=== PATIENT | female | born 1980 | race Caucasian/White ===

== ENCOUNTER 2024-11-06 08:32 | Outpatient (CLI) | payer OTHER, SELFPAY ==
--- OUTSIDE RECORDS SUMMARY | 2024-11-06 08:53 | XMS_ITS | Encounter Summary ---
Author Organization [facility] Healthcare Address [address] [place] [address] Care Team Providers Care Hse Specialist Name Role Phone Ana lAmaraz MD Primary Care Provider + Betty Albarran NP Primary Care Provider [phone] Encounter Details Date Type Department Care Team (Late st Contact Info) Description 12/13/2022 Telephone [facility] Case Management [id number] [place] [address] Carla Millard, RN Social History Tobacco Use Types Packs/Day Years Used Date Smoking Tobacco: Former Cigarettes Q uit: 2020 Smokeless Tobacco: Never AUDIT-C Answer Date Recorded Q1: How often do you have a drink containing alc ohol? 2-4 times a month 12/09/2022 Q2: How many drinks containi ng alcohol do you have on a typical day when you are drinking? 1 or 2 12/09/2022 Q3: How often do you have si x or more drinks on one occasion? Never 12/09/2022 Personal Safety Answer Date Recorded Have you ever been in or are you currently in a harmful physical or emotional relationship or is someone making you feel afraid or unsafe? 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
--- OUTSIDE RECORDS SUMMARY | 2024-11-06 08:53 | XMS_ITS | Encounter Summary ---
Author Organization 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
--- OUTSIDE RECORDS SUMMARY | 2024-11-06 08:53 | XMS_ITS | Clinical Summary ---
Author Organization [facility] Address [address] [place] [id number] Care Team Providers Care Tectonophysicist Name Role Phone Betty Albarran NP Primary Care Provider [phone] Allergies Active Allergy Reactions Criticality Noted Date Comments Adhesive Rash,Swelling Medium 10/25/2022 Adhesive Tape-Silicones Rash Medium 01/11/2024 Medications iodoquinol-hydro cortisone (DERMAZENE) 1-1 % creamIndications :Eczema Apply topically as needed Active phentermine (ADIPEX-P) 37.5 mg tablet Take 1 tablet (37.5 mg total) by mouth every morning 3 Active traZODone (DESYREL) 100 mg tablet Take 1 tablet (100 mg total) by mouth nightly as needed for sleep 3 Active valACYclovir (VALTREX) 1 gram tablet Take 1 tablet (1,000 mg total) by mouth as needed Active ALPRAZolam (XANAX) 0.5 mg tablet Take 0.5 tablets (0.25 mg total) by mouth 3 (three) times a day as needed for anxiety 3 Active oxyCODONE (ROXICODONE) 5 mg immediate release tabletIndication s:Pain Take 1 tablet (5 mg total) by mouth every 4 (four) hours as needed for pain for up to 30 doses 30 tablet 08/15/202 3 Active traMADoL (ULTRAM) 50 mg tabletIndication s:Postoperative pain Take 1 tablet (50 mg total) by mouth every 8 (eight) hours as needed for pain (1st line) 42 tablet 3 Active cyclobenzaprine (FLEXERIL) 5 mg tabletIndication s:Muscle spasms of both lower extremities Take 1 tablet (5 mg total) by mouth 3 (three) times a day as needed for muscle spasms 30 tablet 3 Active meloxicam (MOBIC) 15 mg tablet TAKE 1 TABLET(15 MG) BY MOUTH DAILY 30 tablet 3 Active amoxicillin 500 mg tablet/capsuleIn dications:Prophy lactic antibiotic TAKE 4 PILL 1 HOUR BEFORE DENTAL APPOINTMENT. 4 tablet/capsu le 5 3 Active cefdinir (OMNICEF) 300 mg capsule Take 1 capsule every 12 hours by oral route for 10 days. Active doxycycline hyclate 100 mg capsule TAKE 1 CAPSULE BY MOUTH TWICE DAILY FOR 10 DAYS 4 Active estradioL (ESTRACE) 0.01 % (0.1 mg/gram) vaginal cream APPLY 1GM TO EXTERNAL TISSUES 2 TIMES A WEEK NEEDED Active methocarbamoL (ROBAXIN) 750 mg tablet TAKE 1 TABLET BY MOUTH THREE TIMES A DAY NEEDED FOR 7 DAYS Active neomycin-polymyx in-dexAMETHasone (MAXITROL) 3.5mg/mL-10,000 unit/mL-0.1 % ophthalmic suspension Active nitrofurantoin monohydrate (Macrobid) 100 mg capsule Take 1 capsule every 12 hours by oral route for 7 days. Active nystatin 100,000 unit/mL suspension 5 ml po TID x 7 days prn thrush (swish, hold in mouth as long as possible, and spit out) Active omeprazole (PriLOSEC) 40 mg capsule TAKE 1 CAPSULE DAILY IN THE MORNING 30 MINUTES BEFORE BREAKFAST Active phentermine-topi ramate (Qsymia) 3.75-23 mg capsule, ER multiphase 24 hr Take 1 capsule(s) EVERY DAY by oral route for 14 days. Active polymyxin B-trimethoprim (POLYTRIM) ophthalmic solution INSTILL 1 DROP INTO AFFECTED EYE(S) BY OPHTHALMIC ROUTE EVERY 6 HOURS Active predniSONE (DELTASONE) 20 mg tablet 4 Active zolpidem (AMBIEN) 5 mg tablet Take 1 tablet every day by oral route for 10 days. 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 Gender Identity Female 10/20/2022 11:59 AM CDT Sexual Orientation Straight 10/20/2022 11 :59 AM CDT Obstetrics History Last Filed Vital Signs Vital Sign Reading Time Taken Comments Blood Pressure 119/73 12/10/2022 12:10 PM CDT Pulse 72 12/10/2022 12:10 PM CDT Temperature 36.6 C (97.8 F) 12/10/2022 12:06 PM CDT Respiratory Rate 16 12/10/2022 12:06 PM CDT Oxygen Saturation 100% 12/10/2022 12:10 PM CDT Inhaled Oxygen Concentration - - Weight 79.6 kg (175 lb 6.4 oz) 12/09/2022 11:41 AM CDT Height 157.5 cm (5' 2 ) 12/09/2022 11:41 AM CDT Body Mass Index 32.08 12/09/2022 11:41 AM CDT Plan of Treatment Health Maintenance Due Date Last Done Comments Breast Cancer Screening-Mammogram 1980 Cervical Cancer Screening 1980 Depression Screening 1980 Hepatitis C Screening 1980 Varicella Vaccines (1 of 2 - 13+ 2-dose series) 1993 Hepatitis B Screening 1998 Regular Well Visit/Exam 18-64 1998 Pneumococcal vaccine <65 (2 of 2 - PPSV23) 08/07/2014 06/12/2014 Covid-19 Vaccine ( season) 2024 04/22/2023, 04/21/2022, 04/16/2021, Additional history exists Influenza Vaccine (#1) 2024 , 04/15/2020, 04/25/2019, Additional history exists DTaP/Tdap/Td Vaccine (2 - Td or Tdap) 06/12/2024 06/12/2014 HPV Vaccines Aged Out No longer eligi ble based on patient's age to complete this topic Medical Devices Implanted Type Area Reactor Fueling Supervisor Device Identifier Shelf Expiration Date Model / Serial / Lot Depuy Orthopaedics Inc Smartset Medium Viscosity Cement 40gm Bone Gentamicin [id number] - [facility] - [id number] Implanted:Qty: 1 on 12/09/2022 by Jc Cavanaugh MD at [facility] Bone Cement Left: Knee Depuy Orthopaedics Inc 02/08/2024 [id number] / NA / [id number] Gonzalez [employer] Nephew/Richco/O rtho Tiana Ii Legion Spc Cruciate Retain Knee Left 5 Component [id number] - [facility] - [id number] Implanted:Qty: 1 on 12/09/2022 by Jc Cavanaugh MD at [facility] Other - see comments Left: Knee [employer]Rich[employer]/ Ortho [id number] 06/19/2032 [id number] / NA / [id number] Description:Implant pause pe rformed prior to implant being opened to sterile field. [employer]/Rich[employer]/O rtho Tibial Baseplate Knee Porous Left Fixed With Journey Lock K 15 Pork Size 4 [id number] - [facility] - [id number] Implanted:Qty: 1 on 12/09/2022 by Jc Cavanaugh MD at [facility] Other - see comments Left: Knee [employer]/ Ortho [id number] 09/16/2031 [id number] / NA / [id number] Description:Implant pause pe rformed prior to implant being opened to sterile field. [employer] Nephew/Richco/O rtho Insert Tibial Knee Fixed With Journey Lock Deep [facility] Legion 9mm Size 3-4 Xlpe [id number] - Sna - [id number] Implanted:Qty: 1 on 12/09/2022 by Jc Cavanaugh MD at [facility] Other - see comments Left: Knee [employer]/ Ortho [id number] 06/14/2031 [id number] / NA / [id number] Description:Implant pause pe rformed prior to implant being opened to sterile field. [place] [employer] [place] [place] For more information, please contact: [phone] * Full Code (Latest Code Status on File) Date Activated Date Inactivated Comments 12/09/2022 4:06 PM 12/10/2022 5:31 PM Care Teams Tectonophysicist Relationship Specialty Start Date End Date Betty Albarran NP [address] [place] [address] PCP - General Nurse Practitioner 01/11/24
--- OUTSIDE RECORDS SUMMARY | 2024-11-06 08:53 | XMS_ITS | Clinical Summary ---
Author Organization [facility] Address [address] [place] [id number] Care Team Providers Care Circuit Clerk Name Role Phone Jerardo Albarran NP Primary Care Provider [phone] Encounters Date Type Department Care Team Description 11/05/2024 12:38 PM CDT Hospital Encounter [facility] [address] [place], [place] [id number] Jerardo Albarran NP Arrived 11/05/2024 Travel 10/08/2024 3:07 PM CDT - 10/08/2024 11:59 PM CDT Hospital Encounter [facility] [address] [place], [place] [id number] Non-Staff, Provider Jerardo Albarran NP Discharge Disposition: Home or Self Care (Routine Discharge) 10/08/2024 Travel from Last 3 Months Family History Medical History Relation Comments Breast Cancer Neg Hx Social History Tobacco Use Types Packs/Day Years Used Date Smoking Tobacco: Never Assessed Comments Unknown Sex and Gender Information Value Date Recorded Sex Assigned at Female 10/02/2024 10:56 AM CDT 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 Gender Identity Female 10/02/2024 10:56 AM CDT Sexual Orientation Not on file Plan of Treatment Health Maintenance Due Date Last Done Comments Cervical Cancer Screening Pap Smear (Age 30 to 64) Every 3 Years 1980 Annual Physical 1983 Hepatitis C 1998 Hepatitis B Vaccines (1 of 3 - 19+ 3-dose series) 1999 Cervical Cancer Screening Pap with HPV Testing (Age 30 to 64) Every 5 Years 2010 Cervical Cancer Screening with HPV 2010 DTaP, Tdap and Td Vaccines (2 - Td or Tdap) 06/12/2024 06/12/2014 Mammogram Screening 11/05/2026 11/05/2024, 5 Pneumococcal Vaccine: Pediatrics (0 to 5 Years) and At-Risk Patients (6 to 49 Years) Aged Out 06/12/2014 No longer eligible based on patient's age to complete this topic COVID-19 Vaccine Completed 04/13/2024, , 04/21/2022, Additional history exists HPV Vaccines Aged Out No longer eligi ble based on patient's age to complete this topic Meningococcal B Vaccine Aged Out No l onger eligible based on patient's age to complete this topic Meningococcal Vaccine Aged Out No ivett jason eligible based on patient's age to complete this topic RSV Immunizations Under 20 Months Aged Out No longer eligible based on patient's age to complete this topic Procedures Procedure Name Priority Date/Time Associated Diagnosis Comments MG DIAG W ISELA BILAT DIGI Routine 11/05/2024 1:49 PM CDT Other abnormal and inconclusive findings on diagnostic imaging of breast US BREAST RT BIRAD LTD Routine 11/05/2024 1:46 PM CDT Other abnormal and inconclusive findings on diagnostic imaging of breast US BREAST LT BIRAD LTD Routine 11/05/2024 1:46 PM CDT Other abnormal and inconclusive findings on diagnostic imaging of breast MG SCREENING W ISELA JOY DIGI Routine 10/08/2024 4:22 PM CDT Screening mammogram for breast cancer from Last 3 Months Results * MG DIAG W ISELA BILAT DIGI (11/05/2024 1:49 PM CDT) Anatomical Region Laterality Modality Breast Bilateral Mammography, Rad iographic Imaging 11/05/2024 1:44 PM CDT Impressions 11/05/2024 1:55 PM CDT ===== IMPRESSION: ===== 1. The breast masses are suggestive of cyst. Six-month follow-up is recommended. 2. Findings reviewed and discussed with the patient in the presence of the energy trader, JOSE ANGEL. Assessment: ACR BI-RADS 3 - PROBABLY BENIGN FINDING(S) - SHORT INTERVAL FOLLOW- UP SUGGESTED Recommendation: 1:Short interval follow-up in 6 months.Bilateral Comments: Ordered By: JERARDO ALBARRAN Interpreted By: Selwyn Flores MD, 11/05/2024 1:44 PM Narrative 11/05/2024 1:55 PM CDT [facility] [address] [place] [address] Examination: Digital bilateral diagnostic mammogram with 3-D tomography of grayscale and color Doppler images of the right and left breast. [id number], [id number] Exam Date/Time: 11/05/2024 12:47 PM Reason For Exam: other Abnormal screening mammogram. Comparison: Priors including September 2024, August 2023. Technique: Digital diagnostic mammography of both breasts was performed in addition to 3-D Tomosynthesis technique. This study was read with the assistance of a computer-aided detection system. Grayscale and color Doppler images the right and left breast. Tissue density: There are scattered areas of fibroglandular density. Findings: The mass in the lateral superior right breast does persist. Subsequent targeted ultrasound is performed. In the right breast at the 10:00 position 5 cm from the nipple there is a round anechoic mass that is present. There is posterior acoustic enhancement that is present. Minimal internal echoes are present. The orellana appear to be fairly well-defined with minimal irregularity. This may relate to resolution of the images. This measures approximately 7 mm in maximal dimension. This is suggestive of minimally complicated cyst. Six-month follow-up is recommended. In the lateral left breast the mass does persist after compression is applied. Subsequent targeted ultrasound is performed. At the 3:00 position 7 cm from nipple there is a hypoechoic area that is present. This suggestive of a simple cyst. This posterior acoustic enhancement that is present. No internal color flow is present. This measures approximately 5 mm in maximal dimension. This suggestive of a small cyst. Six-month follow-up recommended. us Jerardo Albarran PLANT SAFETY LEADER MAMMO Final Result * US BREAST RT [employer] (11/05/2024 1:46 PM CDT) Anatomical Region Laterality Modality Breast Right Ultrasound 11/05/2024 1:44 PM CDT Impressions 11/05/2024 1:55 PM CDT ===== IMPRESSION: ===== 1. The breast masses are suggestive of cyst. Six-month follow-up is recommended. 2. Findings reviewed and discussed with the patient in the presence of the energy trader, JOSE ANGEL. Assessment: ACR BI-RADS 3 - PROBABLY BENIGN FINDING(S) - SHORT INTERVAL FOLLOW- UP SUGGESTED Recommendation: 1:Short interval follow-up in 6 months.Bilateral Comments: Ordered By: JERARDO ALBARRAN Interpreted By: Selwyn Flores MD, 11/05/2024 1:44 PM Narrative 11/05/2024 1:55 [place] [address] Examination: Digital bilateral diagnostic mammogram with 3-D tomography of grayscale and color Doppler images of the right and left breast. [id number], [id number] Exam Date/Time: 11/05/2024 12:47 PM Reason For Exam: other Abnormal screening mammogram. Comparison: Priors including September 2024, August 2023. Technique: Digital diagnostic mammography of both breasts was performed in addition to 3-D Tomosynthesis technique. This study was read with the assistance of a computer-aided detection system. Grayscale and color Doppler images the right and left breast. Tissue density: There are scattered areas of fibroglandular density. Findings: The mass in the lateral superior right breast does persist. Subsequent targeted ultrasound is performed. In the right breast at the 10:00 position 5 cm from the nipple there is a round anechoic mass that is present. There is posterior acoustic enhancement that is present. Minimal internal echoes are present. The orellana appear to be fairly well-defined with minimal irregularity. This may relate to resolution of the images. This measures approximately 7 mm in maximal dimension. This is suggestive of minimally complicated cyst. Six-month follow-up is recommended. In the lateral left breast the mass does persist after compression is applied. Subsequent targeted ultrasound is performed. At the 3:00 position 7 cm from nipple there is a hypoechoic area that is present. This suggestive of a simple cyst. This posterior acoustic enhancement that is present. No internal color flow is present. This measures approximately 5 mm in maximal dimension. This suggestive of a small cyst. Six-month follow-up recommended. us Jerardo Albarran NP ULTRASOUND Final Result * US BREAST LT [employer] [facility] (11/05/2024 1:46 PM CDT) Anatomical Region Laterality Modality Breast Left Ultrasound 11/05/2024 1:44 PM CDT Impressions 11/05/2024 1:55 PM CDT ===== IMPRESSION: ===== 1. The breast masses are suggestive of cyst. Six-month follow-up is recommended. 2. Findings reviewed and discussed with the patient in the presence of the energy trader, JOSE ANGEL. Assessment: ACR BI-RADS 3 - PROBABLY BENIGN FINDING(S) - SHORT INTERVAL FOLLOW- UP SUGGESTED Recommendation: 1:Short interval follow-up in 6 months.Bilateral Comments: Ordered By: JERARDO ALBARRAN Interpreted By: Selwyn Flores MD, 11/05/2024 1:44 PM Narrative 11/05/2024 1:55 PM CDT [facility] [address] [place] [address] Examination: Digital bilateral diagnostic mammogram with 3-D tomography of grayscale and color Doppler images of the right and left breast. [id number], [id number] Exam Date/Time: 11/05/2024 12:47 PM Reason For Exam: other Abnormal screening mammogram. Comparison: Priors including September 2024, August 2023. Technique: Digital diagnostic mammography of both breasts was performed in addition to 3-D Tomosynthesis technique. This study was read with the assistance of a computer-aided detection system. Grayscale and color Doppler images the right and left breast. Tissue density: There are scattered areas of fibroglandular density. Findings: The mass in the lateral superior right breast does persist. Subsequent targeted ultrasound is performed. In the right breast at the 10:00 position 5 cm from the nipple there is a round anechoic mass that is present. There is posterior acoustic enhancement that is present. Minimal internal echoes are present. The orellana appear to be fairly well-defined with minimal irregularity. This may relate to resolution of the images. This measures approximately 7 mm in maximal dimension. This is suggestive of minimally complicated cyst. Six-month follow-up is recommended. In the lateral left breast the mass does persist after compression is applied. Subsequent targeted ultrasound is performed. At the 3:00 position 7 cm from nipple there is a hypoechoic area that is present. This suggestive of a simple cyst. This posterior acoustic enhancement that is present. No internal color flow is present. This measures approximately 5 mm in maximal dimension. This suggestive of a small cyst. Six-month follow-up recommended. us Jerardo Albarran NP ULTRASOUND Final Result * MG SCREENING W ISELA JOY DIGI (10/08/2024 4:22 PM CDT) Anatomical Region Laterality Modality Breast Bilateral Mammography 10/09/2024 1:36 PM CDT Impressions 10/09/2024 1:37 PM CDT =====IMPRESSION:===== Additional imaging evaluation of the right left breast is needed. ASSESSMENT: ACR BI-RADS 0 - INCOMPLETE: NEEDS ADDITIONAL IMAGING EVALUATION Recommendation: 1: Additional Imaging Bilateral COMMENTS: Ordered By: JERARDO ALBARRAN Interpreted By: Selwyn Flores MD, 10/09/2024 1:36 PM Narrative 10/09/2024 1:37 PM CDT [facility] [address] [place] [address] EXAMINATION: Digital bilateral screening mammogram with 3-D tomosynthesis EXAM DATE/TIME: 10/08/2024 3:38 PM REASON FOR EXAM: Screening COMPARISON: Priors including August 2023, August 2022, August 2021. TECHNIQUE: Digital screening mammography of both breasts was performed in addition to 3-D Tomosynthesis technique. This study was read with the assistance of a computer-aided detection system. TISSUE DENSITY: The breasts are heterogeneously dense, which may obscure small masses. FINDINGS: Within the lateral superior right breast are small mass that is present. Compression view and possible ultrasound. Within the superior aspect the left breast on the MLO view is an asymmetry that is present. This is suspected to be present on the lateral aspect the left breast on the cc view. Compression views and possible ultrasound recommended of the right and left breast. Jerardo Albarran NP MAMMO Final Result from Last 3 Months Insurance Care Teams Circuit Clerk Relationship Specialty Start Date End Date Jerardo Albarran NP [address] [place] [address] PCP - General 10/02/24
--- OUTSIDE RECORDS SUMMARY | 2024-11-06 08:54 | XMS_ITS | Encounter Summary ---
Author Organization [facility] Address [facility] [place] [address] Care Team Providers Care Dress Draper Name Role Phone Jerardo Albarran NP Primary Care Provider [phone] Reason for Referral * Imaging (Routine) - Closed Specialty Diagnoses / Procedures Referred By Contac t Referred To Contact RADIOLOGY Diagnoses Other abnormal and inconclusive findings on diagnostic imaging of breast Procedures US BREAST RT BIRAD LTD Jerardo Albarran NP [address] [place] [address] Phone: tel: fax: Referral ID Status Reason Start Date Expiration Date Visits Re quested Visits Authorized [id number] Closed 10/11/2024 10/11/2025 1 1 * Imaging (Routine) - Closed Specialty Diagnoses / Procedures Referred By Contac t Referred To Contact RADIOLOGY Diagnoses Other abnormal and inconclusive findings on diagnostic imaging of breast Procedures US BREAST LT BIRAD LTD Jerardo Albarran NP [address] [place] [address] Phone: tel: fax: Referral ID Status Reason Start Date Expiration Date Visits Re quested Visits Authorized [id number] Closed 10/11/2024 10/11/2025 1 1 Encounter Details Date Type Department Care Team (Late st Contact Info) Description 11/05/2024 12:38 PM CDT Hospital Encounter [facility] [address] [place] [address] Jerardo Albarran, DANAE [address] [place] [address] Arrived Social History Tobacco Use Types Packs/Day Years Used Date Smoking Tobacco: Never Assessed Comments Unknown Sex and Gender Information Value Date Recorded Sex Assigned at Female 10/02/2024 10:56 AM CDT 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 The breast masses are suggestive of cyst. Six-month follow-up is recommended. 2. Findings reviewed and discussed with the patient in the presence of the drilling engineering manager, JOSE ANGEL. Assessment: ACR BI-RADS 3 - PROBABLY BENIGN FINDING(S) - SHORT INTERVAL FOLLOW- UP SUGGESTED Recommendation: 1:Short interval follow-up in 6 months.Bilateral Comments: Ordered By: JERARDO ALBARRAN Interpreted By: Selwyn Flores MD, 11/05/2024 1:44 PM Narrative 11/05/2024 1:55 PM CDT [facility] [address] [place] [address] Examination: Digital bilateral diagnostic mammogram with 3-D tomography of grayscale and color Doppler images of the right and left breast. [id number], [id number] Exam Date/Time: 11/05/2024 12:47 PM Reason For [...] Six-month follow-up recommended. us Jerardo Albarran NP MAMMO Final Result * US BREAST RT [employer]onetime[employer] LTD (11/05/2024 1:46 PM CDT) Anatomical Region Laterality Modality Breast Right Ultrasound 11/05/2024 1:44 PM CDT Impressions 11/05/2024 1:55 PM CDT ===== IMPRESSION: ===== 1. The breast masses are suggestive of cyst. Six-month follow-up is recommended. 2. Findings reviewed and discussed with the patient in the presence of the drilling engineering manager, JOSE ANGEL. Assessment: ACR BI-RADS 3 - PROBABLY BENIGN FINDING(S) - SHORT INTERVAL FOLLOW- UP SUGGESTED Recommendation: 1:Short interval follow-up in 6 months.Bilateral Comments: Ordered By: JERARDO ALBARRAN Interpreted By: Selwyn Flores MD, 11/05/2024 1:44 PM Narrative 11/05/2024 1:55 PM CDT [facility] [address] [place] [address] Examination: Digital bilateral diagnostic mammogram with 3-D tomography of grayscale and color Doppler images of the right and left breast. [id number], [id number] Exam Date/Time: 11/05/2024 12:47 PM Reason For [...] ULTRASOUND Final Result * US BREAST LT [employer] (11/05/2024 1:46 PM CDT) Anatomical Region Laterality Modality Breast Left Ultrasound 11/05/2024 1:44 PM CDT Impressions 11/05/2024 1:55 PM CDT ===== IMPRESSION: ===== 1. The breast masses are suggestive of cyst. Six-month follow-up is recommended. 2. Findings reviewed and discussed with the patient in the presence of the drilling engineering manager, JOSE ANGEL. Assessment: ACR BI-RADS 3 - PROBABLY BENIGN FINDING(S) - SHORT INTERVAL FOLLOW- UP SUGGESTED Recommendation: 1:Short interval follow-up in 6 months.Bilateral Comments: Ordered By: JERARDO ALBARRAN Interpreted By: Selwyn Flores MD, 11/05/2024 1:44 PM Narrative 11/05/2024 1:55 PM CDT [facility] [address] [place] [address] Examination: Digital bilateral diagnostic mammogram with 3-D tomography of grayscale and color Doppler images of the right and left breast. [id number], [id number] Exam Date/Time: 11/05/2024 12:47 PM Reason For [...] us Jerardo Albarran NP ULTRASOUND Final Result documented in this encounter Visit Diagnoses Diagnosis Other abnormal and inconclusive findings on diagnostic imaging of breast documented in this encounter Care Teams Dress Draper Relationship Specialty Start Date End Date Jerardo Albarran NP [address] [place] [address] PCP - General 10/02/24 documented as of this encounter
--- OUTSIDE RECORDS SUMMARY | 2024-11-06 08:54 | XMS_ITS | Encounter Summary ---
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
--- OUTSIDE RECORDS SUMMARY | 2024-11-06 08:54 | XMS_ITS | Referral Summary ---
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 Gender Identity Female 10/20/2022 11:59 AM CDT Sexual Orientation Straight 10/20/2022 11 :59 AM CDT Last Filed Vital Signs Vital Sign Reading [...] 12/09/2022 11:41 AM CDT Plan of Treatment Not on file Medical Devices Implanted Type Area Mechanotherapist Device Identifier Shelf Expiration Date Model / Serial / Lot [employer] Smartset Medium Viscosity Cement 40gm Bone Gentamicin [id number] - Sna - [id number] Implanted:Qty: 1 on 12/09/2022 by Jc Cavanaugh MD at [facility] Bone Cement Left: Knee [employer] 02/08/2024 [id number] / NA / [id number] [employer] r[employer]o Tiana [employer]i Legion Spc Cruciate Retain Knee Left 5 Component [id number] - [facility] - [id number] Implanted:Qty: 1 on 12/09/2022 by Jc Cavanaugh MD at [facility] Other - see comments Left: Knee [employer] Ortho [id number] 06/19/2032 [id number] / NA / [id number] Description:Implant pause pe rformed prior to implant being opened to sterile field. [employer] Tibial Baseplate Knee Porous Left Fixed With Journey Lock K 15 Pork Size 4 [id number] - [facility] - [id number] Implanted:Qty: 1 on 12/09/2022 by Jc Cavanaugh MD at [facility] Other - see comments Left: Knee [employer] Ortho [id number] 09/16/2031 [id number] / NA / [id number] Description:Implant pause pe rformed prior to implant being opened to sterile field. [employer]o Insert Tibial Knee Fixed With Journey Lock Deep [facility] Legion 9mm Size 3-4 Xlpe [id number] - [facility] - [id number] Implanted:Qty: 1 on 12/09/2022 by Jc Cavanaugh MD at [facility] Other - see comments Left: Knee [employer] Ortho [id number] 06/14/2031 [id number] / NA / [id number] Description:Implant pause pe rformed prior to implant being opened to sterile field. Insurance [facility] Advance Directives For more information, please contact: [phone] * Full Code (Latest Code Status on File) Date Activated Date Inactivated Comments 12/09/2022 4:06 PM 12/10/2022 5:31 PM Care Teams Embossing Tool Setter Relationship Specialty Start Date End Date Betty Albarran NP [address] [place] [address] PCP - General Nurse Practitioner 01/11/24
[2024-11-06 20:25] LABS: Basophils Percent Auto 0.5 % (0.2-1.2); Eosinophils Absolute Auto 0.1 K/mm3 (0-0.3); Eosinophils Percent Auto 2.1 % (0-4.4); Hematocrit 46.1 % (37.0-47.0); Hemoglobin 14.9 g/dL (12.0-15.0); Immature Granulocyte Absolute 0.01 K/mm3 (0.00-0.031); Immature Granulocyte Percent A 0.2 % (0-0.5); Lymphocytes Absolute Auto 1.74 K/mm3 (0.9-3.2); Lymphocytes Percent Auto 26.7 % (18.3-44.2); Mean Corpuscular HGB Conc 32.3 g/dl (32-36); Mean Corpuscular Hemoglobin 31.7 pg (26-34); Mean Corpuscular Volume 98.1 fl (80-100); Mean Platelet Volume 9.1 fl (7.4-10.4); Monocytes Absolute Auto 0.5 K/mm3 (0.1-0.6); Monocytes Percent Auto 7.7 % (2.6-8.5); Neutrophils Absolute Auto 4.1 K/mm3 (1.3-6.7); Neutrophils Percent Auto 62.8 % (45.5-73.1); Platelet Count Result 285 k/mm3 (150-375); Red Cell Distribution Width 13.2 % (11.5-14.5); White Blood Count 6.5 K/mm3 (4.5-10.0)
[2024-11-06 20:48] LABS: Alanine Aminotransferase 13 U/L (6-35); Albumin Level 4.4 g/dL (3.5-5.1); Alkaline Phosphatase 66 U/L (38-126); Anion Gap 8 mmol/L (4-12); Aspartate Amino Transferase 36 U/L (14-36); Bilirubin,Total 0.5 mg/dL (0.2-1.3); Blood Urea Nitrogen 12 mg/dL (7-17); Calcium 9.4 mg/dL (8.4-10.2); Carbon Dioxide 24 mmol/L (22-30); Chloride 106 mmol/L (98-107); Cholesterol 252 mg/dL (0-200); Estimated Glomerular Filt Rate > 60; Glucose 96 mg/dL (65-110); HDL Direct 50 mg/dL; Potassium 4.3 mmol/L (3.4-5.0); Sodium 138 mmol/L (137-145); Triglycerides 90 mg/dL (<150)
[2024-11-06 20:58] LABS: Erythrocyte Sedimentation Rate 13 mm/hr (0-20)
[2024-11-06 20:59] LABS: LDL Cholesterol Direct 157 mg/dL
[2024-11-06 21:05] LABS: Free T4 Free Thyroxine 0.97 ng/dL (0.78-2.19); Vitamin D 25 Hydroxy 44.1 ng/mL
[2024-11-08 03:19] LABS: ANA Cascade Screen NEGATIVE (NEGATIVE)
[2024-11-08 10:54] LABS: Thyroid Peroxidase Antibodies <1 IU/mL (<9)
== END 2024-11-06 08:33 | disposition home or self-care (01) ==
LOC: ANHBWCLAB 08:33
PROVIDERS: PCP Nurse Practitioner Adult Health; Visit Provider Nurse Practitioner Adult Health
DX: M79.10 Myalgia, unspecified site (principal); R53.83 Other fatigue; E78.00 Pure hypercholesterolemia, unspecified
CPT/HCPCS: 36415; 80053; 80061; 82306; 82607; 83516; 84439; 84443; 85025; 85652; 86038; 86225; 86235; 86376

== ENCOUNTER 2025-04-23 14:05 | Outpatient (CLI) | payer OTHER, SELFPAY ==
--- NOTE | ~2025-04-23 | MR_ITS ---
EXAMINATION: MR cervical spine wo con DATE: 04/23/2025 14:44 INDICATION: Radiculopathy, cervical region. Right-sided neck pain. TECHNIQUE: Magnetic resonance imaging (MRI) of the cervical spine was performed without intravenous contrast. COMPARISON: None FINDINGS: There is 6 degrees dextrocurvature of cervical spine. There is mild kyphosis of cervical spine. Vertebral body heights are normal. There is mildly decreased disc height at C4-C5, moderately decreased disc height at C5-C6 and C6-C7, and mildly decreased disc height at C7-T1. The spinal cord signal intensity is normal. The following disc levels are specifically discussed: C2-C3: The disc does not extend beyond the endplate margin. There is mild right uncovertebral joint osteoarthritis. There is severe bilateral facet joint osteoarthritis. There is mild right neural foraminal stenosis. There is no central canal stenosis. C3-C4: The disc does not extend beyond the endplate margin. There is mild bilateral uncovertebral joint osteoarthritis. There is moderate bilateral facet joint osteoarthritis. There is mild right neural foraminal stenosis. There is no central canal stenosis. C4-C5: The disc is bulging. There is moderate bilateral uncovertebral joint osteoarthritis. There is severe bilateral facet joint osteoarthritis. There is mild bilateral neural foraminal stenosis. There is mild central canal stenosis. C5-C6: The disc is bulging. There is severe bilateral uncovertebral joint osteoarthritis. There is mild bilateral facet joint osteoarthritis. There is mild bilateral neural foraminal stenosis. There is mild central canal stenosis. C6-C7: The disc is bulging. There is severe bilateral uncovertebral joint osteoarthritis. There is mild bilateral facet joint osteoarthritis. There is mild right and moderate left neural foraminal stenosis. There is mild central canal stenosis. C7-T1: The disc is bulging. There is mild left uncovertebral joint osteoarthritis. There is severe bilateral facet joint osteoarthritis. There is mild bilateral neural foraminal stenosis. There is no central canal stenosis. IMPRESSION: 1. Moderate cervical spondylosis. Reviewed, dictated and finalized at location E.
== END 2025-04-23 14:06 | disposition home or self-care (01) ==
LOC: MICIMG 14:05
PROVIDERS: PCP Nurse Practitioner Adult Health; Visit Provider Nurse Practitioner Adult Health
DX: M47.22 Other spondylosis with radiculopathy, cervical region (principal)
CPT/HCPCS: 72141